=== PATIENT | female | born 1930 | race Caucasian/White ===

== ENCOUNTER → 2016-10-27 | Outpatient (CLI) | payer MEDICARE, OTHER | LOC: LAB 12:03 | PROVIDERS: Emergency Medicine | DX: I10 Essential (primary) hypertension (principal); K21.9 Gastro-esophageal reflux disease without esophagitis; I82.591 Chronic embolism and thrombosis of other specified deep vein of right lower extremity; I27.82 Chronic pulmonary embolism; R60.0 Localized edema | CPT/HCPCS: 36415; 80053 ==